=== PATIENT | female | born 1990 | race Caucasian/White ===

== ENCOUNTER 2017-01-22 09:37 | Inpatient (IN) | payer MEDICAID ==
[~2017-01-22] VITALS: Ht 154.9 cm; Wt 45.9 kg
[~2017-01-22 09:37] MED LIST: BUPR1FIL5 PO; HYDR25CA PO; TRAZ100T15 PO
[2017-01-22] MEDS ORDERED: LORazepam 2 MG/ML, 1ML IVPush ONE (10:00)
[2017-01-22] MEDS ORDERED: SODIUM CHLORIDE 0.9% 1,000ML IVBOLUS ONE (10:00)
[2017-01-22] MEDS ORDERED: PROPOFOL 10 MG/ML, 20ML ONE (10:21)
[2017-01-22 10:25] LABS: HEMOGLOBIN 13.6 g/dL (11.7-16.4)
[2017-01-22 10:37] LABS: ASPARTATE AMINO TRANSFERASE 23 U/L (15-37); BLOOD UREA NITROGEN 8 mg/dL (7-18)
[2017-01-22] MEDS ORDERED: PIPERACILLIN/TAZO/PMX 3.375GM 50 ML IV ONE (11:00)
[2017-01-22] MEDS ORDERED: VANCOMYCIN PER PHARMACY MC PRN ×2 (11:00→12:30)
[2017-01-22] MEDS ORDERED: LORazepam 2 MG/ML, 1ML ONE (11:24)
[2017-01-22] MEDS ORDERED: HYDROmorphone 1 MG/ML, 1ML ONE ×2 (11:24→13:17)
[2017-01-22] MEDS: HYDROmorphone 1 MG/ML, 1ML IVPush PRN ×2 (11:28→13:18)
[2017-01-22] MEDS ORDERED: VANCOMYCIN 700 MG in SODIUM CHLORIDE 0.9% 100 ML IV ONE (11:30)
[2017-01-22] MEDS ORDERED: PHARMACOKINETIC CONSULTATION MC ONE ×2 (11:30→14:00)
[2017-01-22] MEDS ORDERED: PIPERACILLIN/TAZO/PMX 3.375GM 50 ML ONE (12:05)
[2017-01-22] MEDS ORDERED: ONDANSETRON 2MG/ML, 2ML IVP PRN (12:30)
[2017-01-22] MEDS ORDERED: HYDROcodone/APAP 5/325 TABLET PO PRN ×2 (12:30→19:30)
[2017-01-22 13:33] VITALS: BP 134/77
[2017-01-22 13:49] LABS: DAU SCREEN DISCLAIMER
[2017-01-22] MEDS ORDERED: PHARMACOKINETIC MONITORING MC PRN (14:00)
[2017-01-22] MEDS: ENOXAPARIN 40 MG/0.4 ML SQ SCH (14:21)
[2017-01-22] MEDS: MORPHINE SULFATE 4 MG/ML, 1ML IVPush PRN ×3 (14:41→22:12)
[2017-01-22] MEDS ORDERED: POTASSIUM CHLORIDE 20 MEQ TAB.ER.PRT PO ONE (15:30)
[2017-01-22] MEDS: VANCOMYCIN 700 MG in SODIUM CHLORIDE 0.9% 100 ML IV SCH (15:51)
[2017-01-22] MEDS: SODIUM CHLORIDE 0.9% 1,000 ML IV SCH ×2 (16:01→23:08)
[2017-01-22] MEDS ORDERED: BACITRACIN OINT 500U/GM, 15 GM ONE (18:27)
[2017-01-22] MEDS: D5%-0.45% NACL 1,000 ML IV SCH (19:09)
[2017-01-22] MEDS ORDERED: OXYcodone/APAP 5/325MG TABLET PO PRN (19:30)
[2017-01-22] MEDS ORDERED: morphine SULFATE 10 MG/ML, 1ML IV PRN ×2 (19:30→20:30)
[2017-01-22] MEDS ORDERED: PROMETHAZINE 25 MG/ML, 1ML IM PRN (19:30)
[2017-01-22] MEDS ORDERED: MIDAZOLAM 1 MG/ML, 2ML ONE ×3 (19:43→20:21)
[2017-01-22] MEDS ORDERED: HYDROmorphone 2 MG/ML, 1ML ONE (19:57)
[2017-01-22] MEDS ORDERED: MIDAZOLAM 1 MG/ML, 2ML IVPush ONE (20:00)
[2017-01-22] MEDS ORDERED: OXYcodone 5 MG/5 ML ORAL.SOL UDC ONE (20:21)
[2017-01-22] MEDS ORDERED: FENTANYL PF 100 MCG/2ML ONE (20:21)
[2017-01-22] MEDS ORDERED: PROMETHAZINE 25 MG/ML, 1ML IV PRN (20:30)
[2017-01-22] MEDS ORDERED: hydrALAzine 20 MG/ML, 1ML IV PRN (20:30)
[2017-01-22] MEDS ORDERED: LABETALOL 5MG/ML, 20ML IV PRN (20:30)
[2017-01-22] MEDS ORDERED: MIDAZOLAM 1 MG/ML, 2ML IV PRN (20:30)
[2017-01-22] MEDS ORDERED: OXYcodone 5 MG/5 ML ORAL.SOL UDC PO PRN (20:30)
[2017-01-22] MEDS ORDERED: FENTANYL PF 100 MCG/2ML IV PRN (20:30)
[2017-01-22] MEDS: TRAZODONE 100MG TABLET PO SCH ×2 (21:00→22:59)
[2017-01-22] MEDS: CLINDAMYCIN PMX 900MG/50ML 50 ML IVPB SCH (22:12)
[2017-01-22 22:43] VITALS: BP 154/95
[2017-01-22] MEDS: METHADONE 10 MG TABLET PO SCH (22:59)
[2017-01-23 00:57] VITALS: BP 134/84
[2017-01-23 01:00] VITALS: BP 134/84
[2017-01-23] MEDS: LORazepam 2 MG/ML, 1ML IVPush PRN ×2 (02:30→18:12)
[2017-01-23] MEDS: VANCOMYCIN 700 MG in SODIUM CHLORIDE 0.9% 100 ML IV SCH ×2 (03:35→16:48)
[2017-01-23] MEDS: D5%-0.45% NACL 1,000 ML IV SCH ×2 (04:35→16:19)
[2017-01-23] MEDS: MORPHINE SULFATE 4 MG/ML, 1ML IVPush PRN ×4 (06:15→23:41)
[2017-01-23] MEDS: CLINDAMYCIN PMX 900MG/50ML 50 ML IVPB SCH ×3 (06:15→21:23)
[2017-01-23 06:36] LABS: BLOOD UREA NITROGEN 3 mg/dL (7-18)
[2017-01-23 06:57] LABS: DIFF TOTAL CELLS COUNTED 100 CELL DIFF; HEMOGLOBIN 12.4 g/dL (11.7-16.4)
[2017-01-23 06:59] LABS: VERIFY COUNTS? YES
[2017-01-23 08:12] VITALS: BP 118/67
[2017-01-23] MEDS: SENNA/DOCUSATE TABLET PO SCH (09:48)
[2017-01-23] MEDS: METHADONE 10 MG TABLET PO SCH ×2 (09:53→21:23)
[2017-01-23] MEDS ORDERED: POTASSIUM CHLORIDE 20 MEQ TAB.ER.PRT PO ONE (10:30)
[2017-01-23] MEDS ORDERED: SODIUM CHLORIDE 0.9% 1,000 ML IV SCH (11:00)
[2017-01-23] MEDS: ENOXAPARIN 40 MG/0.4 ML SQ SCH (12:30)
[2017-01-23] MEDS: SODIUM CHLORIDE 0.9% 1,000 ML IV SCH ×2 (13:28→21:23)
[2017-01-23 15:22] VITALS: BP 131/83
[2017-01-23 19:07] VITALS: BP 125/87
[2017-01-23] MEDS: TRAZODONE 100MG TABLET PO SCH (21:00)
[2017-01-24] MEDS: LORazepam 2 MG/ML, 1ML IVPush PRN ×2 (00:29→11:44)
[2017-01-24] MEDS: D5%-0.45% NACL 1,000 ML IV SCH ×3 (01:04→19:50)
[2017-01-24] MEDS: VANCOMYCIN 700 MG in SODIUM CHLORIDE 0.9% 100 ML IV SCH (03:05)
[2017-01-24 03:56] VITALS: BP 122/82
[2017-01-24] MEDS: CLINDAMYCIN PMX 900MG/50ML 50 ML IVPB SCH ×3 (05:22→22:12)
[2017-01-24 05:23] LABS: HEMOGLOBIN 11.9 g/dL (11.7-16.4)
[2017-01-24] MEDS: SODIUM CHLORIDE 0.9% 1,000 ML IV SCH ×3 (05:25→22:13)
[2017-01-24 05:29] LABS: BLOOD UREA NITROGEN 5 mg/dL (7-18)
[2017-01-24 06:52] VITALS: BP 133/79
[2017-01-24] MEDS ORDERED: POTASSIUM CHLORIDE 20 MEQ TAB.ER.PRT PO ONE (07:00)
[2017-01-24] MEDS: MORPHINE SULFATE 4 MG/ML, 1ML IVPush PRN ×3 (10:21→20:52)
[2017-01-24] MEDS: METHADONE 10 MG TABLET PO SCH ×2 (11:44→20:52)
[2017-01-24] MEDS: SENNA/DOCUSATE TABLET PO SCH (12:55)
[2017-01-24] MEDS: ENOXAPARIN 40 MG/0.4 ML SQ SCH (12:56)
[2017-01-24] MEDS ORDERED: DIPHTHERIA-TETANUS ADULT 0.5ML IM-VACC ONE (13:30)
[2017-01-24 14:06] VITALS: BP 110/72
[2017-01-24 15:17] LABS: HIV 1&2 ANTIBODY SCREEN Nonreactive (Nonreactive); HIV-1 p24 ANTIGEN Nonreactive (Nonreactive)
[2017-01-24] MEDS ORDERED: GADOBUTROL 7.5 MMOL/7.5 ML PFS ONE (16:16)
[2017-01-24 19:10] VITALS: BP 138/84
[2017-01-24] MEDS: TRAZODONE 100MG TABLET PO SCH (21:00)
[2017-01-25 00:44] VITALS: BP 130/83
[2017-01-25 05:08] LABS: BLOOD UREA NITROGEN 3 mg/dL (7-18)
[2017-01-25] MEDS: CLINDAMYCIN PMX 900MG/50ML 50 ML IVPB SCH ×3 (05:08→22:00)
[2017-01-25] MEDS: SODIUM CHLORIDE 0.9% 1,000 ML IV SCH ×2 (05:08→13:25)
[2017-01-25] MEDS: MORPHINE SULFATE 4 MG/ML, 1ML IVPush PRN ×3 (05:09→20:17)
[2017-01-25] MEDS: D5%-0.45% NACL 1,000 ML IV SCH ×2 (07:09→17:25)
[2017-01-25 08:16] VITALS: BP 116/75
[2017-01-25] MEDS: METHADONE 10 MG TABLET PO SCH ×2 (08:21→20:16)
[2017-01-25] MEDS: SENNA/DOCUSATE TABLET PO SCH (08:21)
[2017-01-25 09:06] LABS: HEPATITIS B SURFACE AG SCREEN Negative (Negative)
[2017-01-25] MEDS ORDERED: PROPOFOL 10 MG/ML, 20ML ONE (10:12)
[2017-01-25] MEDS: ENOXAPARIN 40 MG/0.4 ML SQ SCH (13:43)
[2017-01-25 15:33] VITALS: BP 108/69
[2017-01-25 19:17] VITALS: BP 110/56
[2017-01-25] MEDS: TRAZODONE 100MG TABLET PO SCH (20:16)
[2017-01-25] MEDS: LORazepam 2 MG/ML, 1ML IVPush PRN (20:17)
[2017-01-26] MEDS: SODIUM CHLORIDE 0.9% 1,000 ML IV SCH ×2 (00:50→09:29)
[2017-01-26 01:04] VITALS: BP 117/63
[2017-01-26] MEDS: MORPHINE SULFATE 4 MG/ML, 1ML IVPush PRN ×4 (01:13→22:33)
[2017-01-26] MEDS: LORazepam 2 MG/ML, 1ML IVPush PRN ×3 (01:13→22:33)
[2017-01-26] MEDS: D5%-0.45% NACL 1,000 ML IV SCH (03:09)
[2017-01-26 05:21] LABS: BLOOD UREA NITROGEN 5 mg/dL (7-18)
[2017-01-26] MEDS: CLINDAMYCIN PMX 900MG/50ML 50 ML IVPB SCH ×3 (06:12→22:33)
[2017-01-26 08:16] VITALS: BP 98/51
[2017-01-26] MEDS: SENNA/DOCUSATE TABLET PO SCH (09:00)
[2017-01-26] MEDS: METHADONE 10 MG TABLET PO SCH ×2 (09:29→22:33)
[2017-01-26] MEDS: ENOXAPARIN 40 MG/0.4 ML SQ SCH (12:59)
[2017-01-26 16:40] VITALS: BP 113/76
[2017-01-26 20:00] VITALS: BP 123/77
[2017-01-26] MEDS: TRAZODONE 100MG TABLET PO SCH (22:32)
[2017-01-27 02:00] VITALS: BP 102/54
[2017-01-27 05:19] LABS: HEMOGLOBIN 11.8 g/dL (11.7-16.4)
[2017-01-27 05:29] LABS: BLOOD UREA NITROGEN 8 mg/dL (7-18)
[2017-01-27] MEDS: CLINDAMYCIN PMX 900MG/50ML 50 ML IVPB SCH ×3 (06:26→21:51)
[2017-01-27 07:16] VITALS: BP 97/59
[2017-01-27] MEDS: METHADONE 10 MG TABLET PO SCH ×2 (08:50→21:50)
[2017-01-27] MEDS: SENNA/DOCUSATE TABLET PO SCH (08:50)
[2017-01-27] MEDS: MORPHINE SULFATE 4 MG/ML, 1ML IVPush PRN (09:04)
[2017-01-27] MEDS: ENOXAPARIN 40 MG/0.4 ML SQ SCH (12:12)
[2017-01-27] MEDS: LORazepam 2 MG/ML, 1ML IVPush PRN ×2 (12:12→21:52)
[2017-01-27 14:35] VITALS: BP 106/58
[2017-01-27] MEDS: OXYcodone/APAP 7.5/325MG TABLET PO PRN (19:14)
[2017-01-27 20:00] VITALS: BP 90/63
[2017-01-27] MEDS: TRAZODONE 100MG TABLET PO SCH (21:50)
[2017-01-28 02:00] VITALS: BP 92/54
[2017-01-28] MEDS: CLINDAMYCIN PMX 900MG/50ML 50 ML IVPB SCH ×3 (05:50→22:54)
[2017-01-28 08:10] VITALS: BP 89/47
[2017-01-28] MEDS ORDERED: MORPHINE MC SCH (10:00)
[2017-01-28] MEDS: SENNA/DOCUSATE TABLET PO SCH (10:11)
[2017-01-28] MEDS: MORPHINE SULFATE 4 MG/ML, 1ML IVPush PRN (10:11)
[2017-01-28] MEDS: METHADONE 10 MG TABLET PO SCH ×2 (10:11→21:00)
[2017-01-28] MEDS: ENOXAPARIN 40 MG/0.4 ML SQ SCH (12:30)
[2017-01-28] MEDS: OXYcodone/APAP 7.5/325MG TABLET PO PRN (14:43)
[2017-01-28] MEDS: LORazepam 1MG TABLET PO PRN (14:43)
[2017-01-28 14:51] VITALS: BP 91/47
[2017-01-28 20:18] VITALS: BP 99/50
[2017-01-28] MEDS: TRAZODONE 100MG TABLET PO SCH (21:00)
[2017-01-29 02:59] VITALS: BP 100/55
[2017-01-29] MEDS: CLINDAMYCIN PMX 900MG/50ML 50 ML IVPB SCH ×3 (05:55→22:28)
[2017-01-29 06:31] VITALS: BP 95/44
[2017-01-29] MEDS: METHADONE 10 MG TABLET PO SCH ×3 (09:00→21:00)
[2017-01-29] MEDS: SENNA/DOCUSATE TABLET PO SCH (09:45)
[2017-01-29] MEDS: MORPHINE SULFATE 4 MG/ML, 1ML IVPush PRN (11:40)
[2017-01-29] MEDS: ENOXAPARIN 40 MG/0.4 ML SQ SCH (12:30)
[2017-01-29] MEDS: OXYcodone/APAP 7.5/325MG TABLET PO PRN ×3 (13:27→22:28)
[2017-01-29] MEDS: LORazepam 1MG TABLET PO PRN ×2 (13:41→22:28)
[2017-01-29 15:06] VITALS: BP 95/48
[2017-01-29 20:39] VITALS: BP 93/49
[2017-01-29] MEDS: TRAZODONE 100MG TABLET PO SCH (22:27)
[2017-01-30 01:54] VITALS: BP 89/44
[2017-01-30 02:06] VITALS: BP 99/55
[2017-01-30] MEDS ORDERED: PNEUMOCOCCAL 23 VACCINE IM-VACC ONE (03:00)
[2017-01-30] MEDS ORDERED: FLU VACC QS2016-17 (36MOS+)UP/PF 0.5 ML IM-VACC ONE (03:00)
[2017-01-30] MEDS: CLINDAMYCIN PMX 900MG/50ML 50 ML IVPB SCH ×3 (06:12→22:01)
[2017-01-30 07:53] VITALS: BP 99/55
[2017-01-30] MEDS: METHADONE 10 MG TABLET PO SCH ×2 (09:38→22:01)
[2017-01-30] MEDS: SENNA/DOCUSATE TABLET PO SCH (09:38)
[2017-01-30] MEDS: OXYcodone/APAP 7.5/325MG TABLET PO PRN ×2 (11:59→18:38)
[2017-01-30] MEDS: ENOXAPARIN 40 MG/0.4 ML SQ SCH (13:39)
[2017-01-30] MEDS: MORPHINE SULFATE 4 MG/ML, 1ML IVPush PRN (13:39)
[2017-01-30] MEDS: LORazepam 1MG TABLET PO PRN ×2 (14:43→22:27)
[2017-01-30 15:13] VITALS: BP 100/55
[2017-01-30 18:28] VITALS: BP 107/62
[2017-01-30] MEDS: TRAZODONE 100MG TABLET PO SCH (22:01)
[2017-01-31] MEDS: OXYcodone/APAP 7.5/325MG TABLET PO PRN ×2 (05:19→17:22)
[2017-01-31] MEDS: LORazepam 1MG TABLET PO PRN ×4 (05:19→22:17)
[2017-01-31] MEDS: CLINDAMYCIN PMX 900MG/50ML 50 ML IVPB SCH ×3 (05:19→21:42)
[2017-01-31 05:46] LABS: HEMOGLOBIN 11.2 g/dL (11.7-16.4)
[2017-01-31 05:49] VITALS: BP 85/42
[2017-01-31 06:10] LABS: ASPARTATE AMINO TRANSFERASE 19 U/L (15-37); BLOOD UREA NITROGEN 14 mg/dL (7-18); C-REACTIVE PROTEIN, QUANT 0.69 mg/dL (0.02-0.49)
[2017-01-31 07:38] VITALS: BP 104/56
[2017-01-31] MEDS: METHADONE 10 MG TABLET PO SCH ×2 (08:54→21:39)
[2017-01-31] MEDS: SENNA/DOCUSATE TABLET PO SCH (08:55)
[2017-01-31] MEDS ORDERED: DIPHENHYDRAMINE 25 MG CAPSULE ONE (09:59)
[2017-01-31] MEDS ORDERED: DIPHENHYDRAMINE 12.5MG/5ML, 10ML UDC PO PRN (10:00)
[2017-01-31] MEDS: MORPHINE SULFATE 4 MG/ML, 1ML IVPush PRN (10:13)
[2017-01-31] MEDS: ENOXAPARIN 40 MG/0.4 ML SQ SCH (12:30)
[2017-01-31 14:01] VITALS: BP 100/59
[2017-01-31 19:10] VITALS: BP 99/47
[2017-01-31] MEDS: TRAZODONE 100MG TABLET PO SCH (21:39)
[2017-02-01 02:55] VITALS: BP 100/55
[2017-02-01] MEDS: OXYcodone/APAP 7.5/325MG TABLET PO PRN ×3 (03:04→18:10)
[2017-02-01] MEDS: CLINDAMYCIN PMX 900MG/50ML 50 ML IVPB SCH ×3 (05:54→21:40)
[2017-02-01] MEDS: LORazepam 1MG TABLET PO PRN ×2 (05:54→19:55)
[2017-02-01] MEDS: SENNA/DOCUSATE TABLET PO SCH (09:01)
[2017-02-01 09:30] VITALS: BP 95/50
[2017-02-01] MEDS: METHADONE 10 MG TABLET PO SCH ×2 (10:01→20:42)
[2017-02-01] MEDS: ENOXAPARIN 40 MG/0.4 ML SQ SCH ×2 (12:30→16:43)
[2017-02-01 15:02] VITALS: BP 100/56
[2017-02-01] MEDS: MORPHINE SULFATE 4 MG/ML, 1ML IVPush PRN (16:42)
[2017-02-01 19:05] VITALS: BP 93/49
[2017-02-01] MEDS: TRAZODONE 100MG TABLET PO SCH (21:40)
[2017-02-02 01:13] VITALS: BP 89/58
[2017-02-02] MEDS: OXYcodone/APAP 7.5/325MG TABLET PO PRN ×2 (01:28→08:52)
[2017-02-02] MEDS: LORazepam 1MG TABLET PO PRN ×2 (01:28→06:01)
[2017-02-02 01:31] VITALS: BP 89/58
[2017-02-02] MEDS: CLINDAMYCIN PMX 900MG/50ML 50 ML IVPB SCH ×3 (05:57→22:48)
[2017-02-02 07:11] VITALS: BP 92/55
[2017-02-02] MEDS: SENNA/DOCUSATE TABLET PO SCH (08:36)
[2017-02-02] MEDS: METHADONE 10 MG TABLET PO SCH ×2 (08:36→21:26)
[2017-02-02] MEDS: MORPHINE SULFATE 4 MG/ML, 1ML IVPush PRN ×2 (08:52→22:14)
[2017-02-02] MEDS: ENOXAPARIN 40 MG/0.4 ML SQ SCH (12:24)
[2017-02-02 13:34] VITALS: BP 98/53
[2017-02-02] MEDS: HYDROcodone/APAP 5/325 TABLET PO PRN ×2 (15:58→19:58)
[2017-02-02 19:36] VITALS: BP 97/51
[2017-02-02] MEDS: TRAZODONE 100MG TABLET PO SCH (21:26)
[2017-02-03 03:33] VITALS: BP 91/47
[2017-02-03] MEDS: HYDROcodone/APAP 5/325 TABLET PO PRN ×2 (03:51→13:05)
[2017-02-03] MEDS: CLINDAMYCIN PMX 900MG/50ML 50 ML IVPB SCH ×3 (06:06→21:35)
[2017-02-03 06:51] VITALS: BP 88/46
[2017-02-03] MEDS: SENNA/DOCUSATE TABLET PO SCH (09:21)
[2017-02-03] MEDS: METHADONE 10 MG TABLET PO SCH ×2 (09:22→21:26)
[2017-02-03] MEDS: MORPHINE SULFATE 4 MG/ML, 1ML IVPush PRN (10:00)
[2017-02-03] MEDS ORDERED: CLINDAMYCIN PMX 900MG/50ML 50 ML IVPB SCH (11:30)
[2017-02-03] MEDS: ENOXAPARIN 40 MG/0.4 ML SQ SCH (13:05)
[2017-02-03 13:10] VITALS: BP 92/47
[2017-02-03 19:15] VITALS: BP 142/103
[2017-02-03] MEDS: TRAZODONE 100MG TABLET PO SCH (21:26)
[2017-02-04] MEDS: HYDROcodone/APAP 5/325 TABLET PO PRN ×2 (02:12→08:03)
[2017-02-04 02:14] VITALS: BP 128/75
[2017-02-04] MEDS ORDERED: CLINDAMYCIN 300 MG CAPSULE PO SCH (06:00)
[2017-02-04 07:57] VITALS: BP 139/86
[2017-02-04] MEDS: METHADONE 10 MG TABLET PO SCH ×2 (08:03→20:58)
[2017-02-04] MEDS: SENNA/DOCUSATE TABLET PO SCH (08:03)
[2017-02-04] MEDS: AMPICILLIN/SULBACTAM 3 GM in SODIUM CHLORIDE 0.9% 100 ML IV SCH ×2 (13:19→20:58)
[2017-02-04] MEDS: ENOXAPARIN 40 MG/0.4 ML SQ SCH (13:20)
[2017-02-04 14:16] VITALS: BP 137/92
[2017-02-04] MEDS ORDERED: DIAZEPAM 5 MG/ML, 2ML IV ONE (16:00)
[2017-02-04] MEDS: HYDROmorphone 2MG TABLET PO PRN ×2 (16:02→23:05)
[2017-02-04 20:00] VITALS: BP 101/40
[2017-02-04] MEDS: TRAZODONE 100MG TABLET PO SCH (20:58)
[2017-02-05 00:34] VITALS: BP 133/75
[2017-02-05] MEDS: HYDROmorphone 2MG TABLET PO PRN ×4 (05:34→22:53)
[2017-02-05] MEDS: AMPICILLIN/SULBACTAM 3 GM in SODIUM CHLORIDE 0.9% 100 ML IV SCH ×3 (05:35→19:41)
[2017-02-05 06:19] LABS: BLOOD UREA NITROGEN 17 mg/dL (7-18)
[2017-02-05 06:20] LABS: HEMOGLOBIN 11.5 g/dL (11.7-16.4)
[2017-02-05 06:27] LABS: ASPARTATE AMINO TRANSFERASE 31 U/L (15-37)
[2017-02-05 07:31] VITALS: BP 106/53
[2017-02-05] MEDS: METHADONE 10 MG TABLET PO SCH ×2 (08:45→21:11)
[2017-02-05] MEDS: SENNA/DOCUSATE TABLET PO SCH (08:45)
[2017-02-05] MEDS: ENOXAPARIN 40 MG/0.4 ML SQ SCH (11:47)
[2017-02-05 14:12] VITALS: BP 113/61
[2017-02-05 19:55] VITALS: BP 116/32
[2017-02-05] MEDS: TRAZODONE 100MG TABLET PO SCH (21:11)
[2017-02-06 01:45] VITALS: BP 106/41
[2017-02-06] MEDS: AMPICILLIN/SULBACTAM 3 GM in SODIUM CHLORIDE 0.9% 100 ML IV SCH ×3 (04:11→20:51)
[2017-02-06 07:27] VITALS: BP 81/45
[2017-02-06] MEDS: METHADONE 10 MG TABLET PO SCH (09:09)
[2017-02-06] MEDS: SENNA/DOCUSATE TABLET PO SCH (09:09)
[2017-02-06] MEDS: HYDROmorphone 2MG TABLET PO PRN ×2 (09:09→20:58)
[2017-02-06] MEDS: ENOXAPARIN 40 MG/0.4 ML SQ SCH (12:11)
[2017-02-06 12:27] LABS: ASPARTATE AMINO TRANSFERASE 25 U/L (15-37); BLOOD UREA NITROGEN 20 mg/dL (7-18)
[2017-02-06 13:28] VITALS: BP 92/48
[2017-02-06] MEDS: DIPHENHYDRAMINE 25 MG CAPSULE PO PRN ×2 (14:12→20:58)
[2017-02-06 19:49] VITALS: BP 91/48
[2017-02-06] MEDS: METHADONE 5 MG TABLET PO SCH (20:58)
[2017-02-06] MEDS: TRAZODONE 100MG TABLET PO SCH (20:58)
[2017-02-06 23:53] VITALS: BP 89/41
[2017-02-07] MEDS: HYDROmorphone 2MG TABLET PO PRN ×3 (01:00→17:54)
[2017-02-07 01:03] VITALS: BP 103/67
[2017-02-07] MEDS: AMPICILLIN/SULBACTAM 3 GM in SODIUM CHLORIDE 0.9% 100 ML IV SCH ×3 (04:20→21:07)
[2017-02-07 05:08] LABS: BLOOD UREA NITROGEN 20 mg/dL (7-18)
[2017-02-07 05:13] LABS: ASPARTATE AMINO TRANSFERASE 21 U/L (15-37); C-REACTIVE PROTEIN, QUANT 0.91 mg/dL (0.02-0.49)
[2017-02-07 07:42] VITALS: BP 76/42
[2017-02-07 09:50] VITALS: BP 92/48
[2017-02-07] MEDS: METHADONE 5 MG TABLET PO SCH ×2 (09:50→21:00)
[2017-02-07] MEDS: SENNA/DOCUSATE TABLET PO SCH (09:50)
[2017-02-07] MEDS: ENOXAPARIN 40 MG/0.4 ML SQ SCH (12:30)
[2017-02-07 12:54] VITALS: BP 82/52
[2017-02-07] MEDS ORDERED: GADOBUTROL 7.5 MMOL/7.5 ML PFS ONE (16:46)
[2017-02-07 20:08] VITALS: BP 83/46
[2017-02-07] MEDS: TRAZODONE 100MG TABLET PO SCH (21:00)
[2017-02-08] MEDS: HYDROmorphone 2MG TABLET PO PRN ×4 (00:35→23:40)
[2017-02-08] MEDS: METHADONE 5 MG TABLET PO SCH ×3 (00:38→21:37)
[2017-02-08] MEDS: AMPICILLIN/SULBACTAM 3 GM in SODIUM CHLORIDE 0.9% 100 ML IV SCH ×3 (04:05→20:12)
[2017-02-08 08:29] VITALS: BP 86/47
[2017-02-08] MEDS: SENNA/DOCUSATE TABLET PO SCH (09:00)
[2017-02-08] MEDS: ENOXAPARIN 40 MG/0.4 ML SQ SCH (12:30)
[2017-02-08] MEDS ORDERED: MIDAZOLAM 1 MG/ML, 2ML ONE ×3 (14:37→14:49)
[2017-02-08] MEDS ORDERED: BUPIVACAINE/PF 0.25% ONE (14:37)
[2017-02-08] MEDS ORDERED: FENTANYL PF 100 MCG/2ML ONE ×3 (14:49→14:50)
[2017-02-08] MEDS: D5%-0.45% NACL 1,000 ML IV SCH (15:00)
[2017-02-08] MEDS ORDERED: ALUMINUM/MAG/SIMETHICONE 30 ML UDC PO PRN (15:00)
[2017-02-08] MEDS ORDERED: EPHEDRINE 50 MG/ML, 1ML ONE (15:00)
[2017-02-08] MEDS ORDERED: MAGNESIUM HYDROXIDE 8%, 30ML UDC PO PRN (15:00)
[2017-02-08] MEDS ORDERED: PROPOFOL 10 MG/ML, 20ML ONE (15:00)
[2017-02-08] MEDS ORDERED: SENNA/DOCUSATE TABLET PO PRN (15:00)
[2017-02-08] MEDS ORDERED: BISACODYL 10 MG SUPP PR PRN (15:00)
[2017-02-08] MEDS ORDERED: FENTANYL PF 100 MCG/2ML IV PRN (15:30)
[2017-02-08] MEDS ORDERED: ACETAMINOPHEN 325 MG TABLET PO PRN (15:30)
[2017-02-08] MEDS ORDERED: HYDROmorphone 1 MG/ML, 1ML IV PRN (15:30)
[2017-02-08] MEDS ORDERED: MIDAZOLAM 1 MG/ML, 2ML IV PRN (15:30)
[2017-02-08] MEDS ORDERED: OXYcodone 5 MG/5 ML ORAL.SOL UDC PO PRN (15:30)
[2017-02-08] MEDS ORDERED: MEPERIDINE/PF 25MG/0.5ML IVPush PRN (15:30)
[2017-02-08] MEDS ORDERED: PROMETHAZINE 25 MG/ML, 1ML IV PRN (15:30)
[2017-02-08] MEDS ORDERED: BACITRACIN ZINC OINT 500U/GM, 0.9 GM ONE (15:59)
[2017-02-08 19:32] VITALS: BP 90/45
[2017-02-08] MEDS: DOCUSATE 100 MG CAPSULE PO SCH (21:36)
[2017-02-08] MEDS: TRAZODONE 100MG TABLET PO SCH (21:36)
[2017-02-08 23:37] VITALS: BP 106/46
[2017-02-09 01:58] VITALS: BP 120/68
[2017-02-09] MEDS: AMPICILLIN/SULBACTAM 3 GM in SODIUM CHLORIDE 0.9% 100 ML IV SCH ×3 (04:42→20:36)
[2017-02-09] MEDS: D5%-0.45% NACL 1,000 ML IV SCH (04:43)
[2017-02-09 08:23] VITALS: BP 102/54
[2017-02-09] MEDS: METHADONE 5 MG TABLET PO SCH ×2 (09:00→20:35)
[2017-02-09] MEDS: DOCUSATE 100 MG CAPSULE PO SCH ×2 (09:00→20:37)
[2017-02-09] MEDS: HYDROmorphone 2MG TABLET PO PRN ×2 (09:21→14:13)
[2017-02-09] MEDS: MULTIVITAMINS/MINERALS TABLET PO SCH (09:22)
[2017-02-09] MEDS: SENNA/DOCUSATE TABLET PO SCH (09:22)
[2017-02-09] MEDS: ENOXAPARIN 40 MG/0.4 ML SQ SCH (12:30)
[2017-02-09 15:00] VITALS: BP 99/54
[2017-02-09 19:58] VITALS: BP 94/50
[2017-02-09 20:00] VITALS: BP 94/50
[2017-02-09] MEDS: TRAZODONE 100MG TABLET PO SCH (20:35)
[2017-02-10] MEDS: HYDROmorphone 2MG TABLET PO PRN ×4 (00:07→17:37)
[2017-02-10] MEDS: DIPHENHYDRAMINE 25 MG CAPSULE PO PRN (00:12)
[2017-02-10 02:00] VITALS: BP 91/48
[2017-02-10] MEDS: AMPICILLIN/SULBACTAM 3 GM in SODIUM CHLORIDE 0.9% 100 ML IV SCH ×3 (04:02→19:54)
[2017-02-10 06:25] LABS: BLOOD UREA NITROGEN 15 mg/dL (7-18)
[2017-02-10 07:37] VITALS: BP 87/43
[2017-02-10] MEDS: MULTIVITAMINS/MINERALS TABLET PO SCH (08:56)
[2017-02-10] MEDS: DOCUSATE 100 MG CAPSULE PO SCH ×2 (08:56→20:41)
[2017-02-10] MEDS: METHADONE 5 MG TABLET PO SCH ×2 (08:57→20:41)
[2017-02-10] MEDS: SENNA/DOCUSATE TABLET PO SCH (08:57)
[2017-02-10] MEDS: ENOXAPARIN 40 MG/0.4 ML SQ SCH (12:30)
[2017-02-10 15:26] VITALS: BP 144/76
[2017-02-10 15:29] VITALS: BP 122/71
[2017-02-10 20:35] VITALS: BP 90/44
[2017-02-10] MEDS: TRAZODONE 100MG TABLET PO SCH (20:41)
[2017-02-11 02:00] VITALS: BP 91/44
[2017-02-11] MEDS: HYDROmorphone 2MG TABLET PO PRN ×4 (03:25→22:00)
[2017-02-11] MEDS: AMPICILLIN/SULBACTAM 3 GM in SODIUM CHLORIDE 0.9% 100 ML IV SCH ×3 (03:25→21:03)
[2017-02-11 08:20] VITALS: BP 86/47
[2017-02-11] MEDS: SENNA/DOCUSATE TABLET PO SCH (09:00)
[2017-02-11] MEDS: DOCUSATE 100 MG CAPSULE PO SCH ×2 (09:00→22:00)
[2017-02-11] MEDS: METHADONE 5 MG TABLET PO SCH ×2 (09:00→14:28)
[2017-02-11] MEDS: MULTIVITAMINS/MINERALS TABLET PO SCH (09:37)
[2017-02-11] MEDS: ENOXAPARIN 40 MG/0.4 ML SQ SCH (12:30)
[2017-02-11 14:52] VITALS: BP 93/43
[2017-02-11 20:13] VITALS: BP 96/55
[2017-02-11] MEDS: TRAZODONE 100MG TABLET PO SCH (22:00)
[2017-02-12] MEDS: METHADONE 5 MG TABLET PO SCH ×4 (00:30→21:17)
[2017-02-12 03:37] VITALS: BP 88/44
[2017-02-12] MEDS: AMPICILLIN/SULBACTAM 3 GM in SODIUM CHLORIDE 0.9% 100 ML IV SCH ×3 (04:27→21:17)
[2017-02-12 04:54] LABS: HEMOGLOBIN 11.1 g/dL (11.7-16.4)
[2017-02-12 05:05] LABS: BLOOD UREA NITROGEN 17 mg/dL (7-18)
[2017-02-12 07:27] VITALS: BP 87/41
[2017-02-12] MEDS: MULTIVITAMINS/MINERALS TABLET PO SCH (08:07)
[2017-02-12] MEDS: SENNA/DOCUSATE TABLET PO SCH (08:07)
[2017-02-12] MEDS: DOCUSATE 100 MG CAPSULE PO SCH ×2 (08:08→21:00)
[2017-02-12] MEDS: HYDROmorphone 2MG TABLET PO PRN ×2 (09:57→16:09)
[2017-02-12] MEDS: ALPRazolam 1MG TABLET PO PRN ×2 (12:25→21:26)
[2017-02-12] MEDS: ENOXAPARIN 40 MG/0.4 ML SQ SCH (12:30)
[2017-02-12 13:22] VITALS: BP 96/53
[2017-02-12 19:06] VITALS: BP 101/66
[2017-02-12] MEDS: TRAZODONE 100MG TABLET PO SCH (21:17)
[2017-02-13 01:33] VITALS: BP 96/58
[2017-02-13] MEDS: AMPICILLIN/SULBACTAM 3 GM in SODIUM CHLORIDE 0.9% 100 ML IV SCH ×3 (03:48→21:09)
[2017-02-13] MEDS: DOCUSATE 100 MG CAPSULE PO SCH ×2 (09:00→21:00)
[2017-02-13] MEDS: SENNA/DOCUSATE TABLET PO SCH (09:00)
[2017-02-13 09:22] VITALS: BP 107/70
[2017-02-13] MEDS: MULTIVITAMINS/MINERALS TABLET PO SCH (09:30)
[2017-02-13] MEDS: METHADONE 5 MG TABLET PO SCH ×2 (09:32→21:09)
[2017-02-13] MEDS: ENOXAPARIN 40 MG/0.4 ML SQ SCH (13:44)
[2017-02-13 13:58] VITALS: BP 105/70
[2017-02-13] MEDS ORDERED: OXYcodone IR 5MG TABLET PO PRN (14:00)
[2017-02-13] MEDS: OXYcodone IR 5MG TABLET PO PRN (18:29)
[2017-02-13 18:30] VITALS: BP 105/65
[2017-02-13] MEDS: TRAZODONE 100MG TABLET PO SCH (21:09)
[2017-02-14 04:54] VITALS: BP 92/48
[2017-02-14] MEDS: AMPICILLIN/SULBACTAM 3 GM in SODIUM CHLORIDE 0.9% 100 ML IV SCH ×2 (05:05→12:07)
[2017-02-14] MEDS: OXYcodone IR 5MG TABLET PO PRN ×3 (05:06→17:58)
[2017-02-14 05:52] LABS: HEMOGLOBIN 11.6 g/dL (11.7-16.4)
[2017-02-14 06:07] LABS: BLOOD UREA NITROGEN 17 mg/dL (7-18)
[2017-02-14 06:11] LABS: ASPARTATE AMINO TRANSFERASE 17 U/L (15-37); C-REACTIVE PROTEIN, QUANT 0.22 mg/dL (0.02-0.49)
[2017-02-14 08:58] VITALS: BP 90/42
[2017-02-14] MEDS: DOCUSATE 100 MG CAPSULE PO SCH (09:00)
[2017-02-14] MEDS: MULTIVITAMINS/MINERALS TABLET PO SCH (09:14)
[2017-02-14] MEDS: SENNA/DOCUSATE TABLET PO SCH (09:15)
[2017-02-14] MEDS: METHADONE 5 MG TABLET PO SCH (09:16)
[2017-02-14] MEDS ORDERED: SODIUM CHLORIDE FLUSH 10ML SYR IVF SCH (09:30)
[2017-02-14] MEDS: ALPRazolam 1MG TABLET PO PRN ×2 (09:46→17:58)
[2017-02-14 10:45] VITALS: BP 126/83
[2017-02-14] MEDS: ENOXAPARIN 40 MG/0.4 ML SQ SCH ×2 (12:07→12:09)
[2017-02-14] MEDS ORDERED: AMOX1TAB61 PO (13:29)
[2017-02-14] MEDS ORDERED: METH-356 PO (13:29)
[2017-02-14] MEDS ORDERED: ALPR1TAB6 PO (13:29)
[2017-02-14 18:09] VITALS: BP 111/68
== END 2017-02-14 18:32 | disposition home or self-care (01) | DRG 853 ==
LOC: ED 11:16 → EDIP 11:17 → ED 11:39 → 4EST 13:28 → 4WST 22:37 → 4NOR 01-28 16:17
PROVIDERS: ADMIT Internal Medicine
PROC: 0JDK0ZZ Extraction of Left Hand Subcutaneous Tissue and Fascia, Open Approach (ICD-10-PCS; principal; 2017-01-22 07:00)
PROC: B548ZZA Ultrasonography of Superior Vena Cava, Guidance (ICD-10-PCS; 2017-01-28)
PROC: 02HV33Z Insertion of Infusion Device into Superior Vena Cava, Percutaneous Approach (ICD-10-PCS; 2017-01-28)
PROC: B5181ZA Fluoroscopy of Superior Vena Cava using Low Osmolar Contrast, Guidance (ICD-10-PCS; 2017-01-28)
PROC: 0X6P0Z2 Detachment at Left Index Finger, Mid, Open Approach (ICD-10-PCS; 2017-02-08)
DX: A41.9 Sepsis, unspecified organism (principal); E43 Unspecified severe protein-calorie malnutrition; L02.512 Cutaneous abscess of left hand; F19.20 Other psychoactive substance dependence, uncomplicated; Z68.1 Body mass index [BMI] 19.9 or less, adult; F11.20 Opioid dependence, uncomplicated; M86.8X4 Other osteomyelitis, hand; L03.012 Cellulitis of left finger; M65.142 Other infective (teno)synovitis, left hand; K21.9 Gastro-esophageal reflux disease without esophagitis; F15.10 Other stimulant abuse, uncomplicated; F41.9 Anxiety disorder, unspecified; F17.210 Nicotine dependence, cigarettes, uncomplicated; E87.6 Hypokalemia; D64.9 Anemia, unspecified; L98.499 Non-pressure chronic ulcer of skin of other sites with unspecified severity; Z86.14 Personal history of Methicillin resistant Staphylococcus aureus infection; Z87.11 Personal history of peptic ulcer disease; Z23 Encounter for immunization; Z88.8 Allergy status to other drugs, medicaments and biological substances
CPT/HCPCS: 36415; 36569; 71020; 76937; 77001; 80048; 80053; 80307; 83605; 84703; 85025; 85651; 86140; 86141; 86480; 86703; 86704; 86706; 86803; 87040; 87070; 87075; 87205; 87340; 87899; 88305; 88311; 90686; 90714; 90732; 93005; 93306; 93312; 93325; 96361; 96365; 96375; A9585; J0295; J1170; J1650; J2250; J2405; J2543; J2704; J3010; J3360; J3370; J3490; C1751; G0435; J2060; J2270; J7030; Q0163; Q0177

== ENCOUNTER 2017-02-19 13:25 | Emergency (ER) | payer MEDICAID ==
[~2017-02-19] VITALS: Ht 154.9 cm; Wt 80.8 kg
[~2017-02-19 13:25] MED LIST changes: +ALPR1TAB6 PO; +AMOX1TAB61 PO; +METH-356 PO
[2017-02-19 13:41] VITALS: BP 112/71
[2017-02-19] MEDS ORDERED: IBUPROFEN 200 MG TABLET PO ONE (14:30)
[2017-02-19] MEDS ORDERED: IBUPROFEN 200 MG TABLET ONE (14:53)
[2017-02-19 15:00] LABS: HEMOGLOBIN 11.8 g/dL (11.7-16.4)
[2017-02-19 15:10] LABS: ASPARTATE AMINO TRANSFERASE 18 U/L (15-37); BLOOD UREA NITROGEN 18 mg/dL (7-18)
== END 2017-02-19 16:42 | disposition home or self-care (01) ==
LOC: ED 16:36
DX: M79.641 Pain in right hand (principal); K21.9 Gastro-esophageal reflux disease without esophagitis; Z88.6 Allergy status to analgesic agent; Z88.8 Allergy status to other drugs, medicaments and biological substances; F11.10 Opioid abuse, uncomplicated
CPT/HCPCS: 36415; 80053; 83605; 85025; 85651; 86141; 87040

== ENCOUNTER 2017-03-10 15:48 | Emergency (ER) | payer MEDICAID ==
[~2017-03-10] VITALS: Ht 152.4 cm; Wt 46.0 kg
[2017-03-10] MEDS ORDERED: QUET100T4 PO (16:05)
[2017-03-10] MEDS ORDERED: OXYC1TAB7 PO (16:05)
[2017-03-10] MEDS ORDERED: CEPH-376 PO (16:05)
[2017-03-10] MEDS ORDERED: PROP10TA PO (16:06)
[2017-03-10] MEDS ORDERED: DIPHENHYDRAMINE 50 MG/ML, 1ML ONE (16:24)
[2017-03-10] MEDS ORDERED: METOCLOPRAMIDE 5 MG/ML, 2ML ONE (16:24)
[2017-03-10] MEDS ORDERED: SODIUM CHLORIDE FLUSH 10ML SYR IVF ONE (16:30)
[2017-03-10] MEDS ORDERED: DIPHENHYDRAMINE 50 MG/ML, 1ML IVPush ONE (16:30)
[2017-03-10] MEDS ORDERED: METOCLOPRAMIDE 5 MG/ML, 2ML IVPush ONE (16:30)
[2017-03-10] MEDS ORDERED: SODIUM CHLORIDE 0.9% 1,000ML IVBOLUS ONE (16:30)
[2017-03-10 16:56] LABS: HEMOGLOBIN 12.8 g/dL (11.7-16.4)
[2017-03-10] MEDS ORDERED: cloniDINE 0.1MG PATCH TD ONE (17:00)
[2017-03-10 17:09] LABS: BLOOD UREA NITROGEN 12 mg/dL (7-18)
[2017-03-10 18:43] VITALS: BP 120/75
== END 2017-03-10 18:45 | disposition home or self-care (01) ==
LOC: ED 18:18
DX: M96.89 Other intraoperative and postprocedural complications and disorders of the musculoskeletal system (principal); M79.642 Pain in left hand; F41.1 Generalized anxiety disorder; F11.23 Opioid dependence with withdrawal; F11.20 Opioid dependence, uncomplicated
CPT/HCPCS: 36415; 73140; 80048; 82040; 85025; 85651; 86141; 96361; 96374; 96375; 99285; J1200; J2765; J7030

== ENCOUNTER 2021-04-24 21:08 | Emergency (ER) | payer MEDICAID ==
[~2021-04-24] VITALS: Ht 152.4 cm; Wt 43.6 kg
[~2021-04-24 21:08] MED LIST changes: +ALPR-585 PO; -ALPR1TAB6 PO; +CEPH-376 PO; -METH-356 PO; +METH10TA2 PO; +OXYC1TAB7 PO; +PROP10TA16 PO; +QUET100T4 PO; +TRAZ-175 PO; -TRAZ100T15 PO
[2021-04-24 21:13] VITALS: BP 112/76
--- NOTE | 2021-04-24 22:41 | NUR ---
NILX 2 [id number] BY PA AND [id number] THIS RN
--- NOTE | 2021-04-24 22:47 | NUR ---
NIL X 3 REGISTRATION WITNESS PT LEAVING
== END 2021-04-24 22:49 | disposition left against medical advice (07) ==
LOC: ED 21:30
DX: M79.602 Pain in left arm (principal); Z53.21 Procedure and treatment not carried out due to patient leaving prior to being seen by health care provider

== ENCOUNTER 2021-04-25 00:57 | Inpatient (IN) | payer MEDICAID ==
[~2021-04-25] VITALS: Ht 152.4 cm; Wt 49.6 kg
[2021-04-25] MEDS ORDERED: SODIUM CHLORIDE 0.9% 1,000ML IVBOLUS ONE (02:00)
[2021-04-25] MEDS ORDERED: VANCOMYCIN PER PHARMACY MC ONE (02:00)
[2021-04-25] MEDS ORDERED: PIPERACILLIN/TAZO 3.375 GM in DEXTROSE 5% 50 ML IVPB ONE (02:00)
[2021-04-25] MEDS ORDERED: VANCOMYCIN 1,000 MG in SODIUM CHLORIDE 0.9% 100 ML IV ONE (02:30)
[2021-04-25] MEDS ORDERED: VANCOMYCIN 1,000 MG in SODIUM CHLORIDE 0.9% 250 ML IV ONE (02:30)
[2021-04-25 03:13] LABS: BASOPHILS % (AUTO) 1 % (0-1); EOSINOPHILS % (AUTO) 1 % (1-7); LYMPHOCYTES % (AUTO) 14 % (22-44); MEAN CORPUSCULAR HEMOGLOBIN 26.8 pg (27.0-34.8); MEAN CORPUSCULAR HGB CONC 33.4 g/dL (32.4-35.8); MONOCYTES % (AUTO) 6 % (2-9); NEUTROPHILS % (AUTO) 78 % (42-75); PLATELET COUNT 270 x10^3/uL (130-400); RED CELL DISTRIBUTION WIDTH 13.5 % (9.6-15.2)
[2021-04-25 03:14] LABS: MD NO
[2021-04-25 03:21] LABS: ALANINE AMINOTRANSFERASE 20 U/L (12-78); ALBUMIN 2.2 g/dL (3.4-5.0); ANION GAP 7 mmol/L (5-15); CALCIUM 8.2 mg/dL (8.5-10.1); CHLORIDE 108 mmol/L (98-107)
[2021-04-25 03:25] LABS: ALKALINE PHOSPHATASE 90 U/L (45-117); BILIRUBIN,TOTAL 0.2 mg/dL (0.2-1.0); TOTAL PROTEIN 7.2 g/dL (6.4-8.2)
[2021-04-25] MEDS ORDERED: LORazepam 1MG TABLET PO ONE (03:30)
[2021-04-25] MEDS ORDERED: LORazepam 1MG TABLET ONE (03:33)
--- NOTE | 2021-04-25 03:45 | NUR ---
Multiple attempts made to establish an IV with no success. Patient anxious and requesting a break. Patient to be medicated per mar.
[2021-04-25] MEDS ORDERED: MORPHINE SULFATE 4 MG/ML, 1ML IVPush PRN (04:30)
[2021-04-25] MEDS ORDERED: SODIUM CHLORIDE 0.9% 1,000 ML IV ONE (04:30)
[2021-04-25] MEDS ORDERED: BISACODYL 10 MG SUPP PR PRN (05:00)
[2021-04-25] MEDS ORDERED: POLYETHYLENE GLYCOL 17 GM PACKET PO PRN (05:00)
[2021-04-25] MEDS ORDERED: DOCUSATE 100 MG CAPSULE PO PRN (05:00)
[2021-04-25] MEDS ORDERED: HYDROmorphone 1 MG/ML, 1ML INJ IV PRN ×2 (05:00→08:30)
[2021-04-25] MEDS ORDERED: hydrALAzine 20 MG/ML, 1ML IVPush PRN (05:00)
[2021-04-25] MEDS ORDERED: VANCOMYCIN PER PHARMACY MC PRN (05:00)
[2021-04-25] MEDS ORDERED: ONDANSETRON 2MG/ML, 2ML IVPush PRN ×2 (05:00→08:30)
--- NOTE | 2021-04-25 05:15 | NUR ---
Report given to Ciro JACKSON Rm [id number].
--- NOTE | 2021-04-25 05:46 | NUR ---
REPORT GIVEN TO BOY JACKSON IN SURGERY STATES WILL BE UP TO FLOOR AT 0630
--- NOTE | 2021-04-25 06:06 | NUR ---
PT RECIEVED 2ND CULTURE ZOSYN STARTED.
--- NOTE | 2021-04-25 06:10 | NUR ---
LISA IS WITH PATIENT.
--- NOTE | 2021-04-25 06:17 | NUR ---
VANCOMYCIN SENT WITH PT TO FLOOR TO BE STARTED AFTER ZOSYN INFUSION.
[2021-04-25 06:27] VITALS: BP 101/69
[2021-04-25] MEDS ORDERED: PHARMACOKINETIC MONITORING MC PRN (06:30)
[2021-04-25] MEDS ORDERED: MIDAZOLAM 1 MG/ML, 2ML ONE (07:26)
[2021-04-25] MEDS ORDERED: FENTANYL PF 250 MCG/5ML ONE (07:26)
[2021-04-25] MEDS ORDERED: PROPOFOL 10 MG/ML, 20ML ONE (07:28)
[2021-04-25] MEDS ORDERED: CEFAZOLIN 1,000 MG ONE (07:28)
[2021-04-25] MEDS ORDERED: SUCCINYLCHOLINE 20 MG/ML, 10ML ONE (07:28)
[2021-04-25] MEDS ORDERED: ONDANSETRON 2MG/ML, 2ML ONE (07:28)
[2021-04-25] MEDS ORDERED: AMPICILLIN/SULBACTAM 3 GM in SODIUM CHLORIDE 0.9% 100 ML IV SCH (08:00)
[2021-04-25] MEDS ORDERED: FENTANYL PF 100 MCG/2ML ONE (08:16)
[2021-04-25] MEDS ORDERED: OXYcodone 5 MG/5 ML ORAL.SOL UDC PO PRN (08:30)
[2021-04-25] MEDS ORDERED: METOCLOPRAMIDE 5 MG/ML, 2ML IV PRN (08:30)
[2021-04-25] MEDS ORDERED: FENTANYL PF 100 MCG/2ML IV PRN (08:30)
[2021-04-25] MEDS ORDERED: hydrALAzine 20 MG/ML, 1ML IV PRN (08:30)
[2021-04-25] MEDS ORDERED: KETOROLAC 30 MG/1 ML IV PRN (08:30)
[2021-04-25] MEDS ORDERED: PROMETHAZINE 25 MG/ML, 1ML IV PRN (08:30)
[2021-04-25] MEDS ORDERED: LABETALOL 5MG/ML, 20ML IV PRN (08:30)
[2021-04-25] MEDS ORDERED: MEPERIDINE/PF 25MG/0.5ML IVPush PRN (08:30)
[2021-04-25] MEDS ORDERED: ALBUTEROL SULFATE 2.5 MG/3 ML NPPB PRN (08:30)
[2021-04-25] MEDS ORDERED: DIAZEPAM 5 MG/ML, 2ML IV PRN ×2 (08:30)
[2021-04-25] MEDS ORDERED: OXYcodone 5 MG/5 ML ORAL.SOL UDC ONE (08:32)
[2021-04-25] MEDS: FAMOTIDINE 20 MG TABLET PO SCH ×2 (09:00→20:36)
[2021-04-25] MEDS: OXYcodone IR 5MG TABLET PO PRN ×2 (12:21→19:48)
[2021-04-25 12:38] VITALS: BP 109/74
[2021-04-25 16:19] VITALS: BP 125/80
[2021-04-25] MEDS: LORazepam 2 MG/ML, 1ML IVPush PRN ×2 (17:38→21:32)
[2021-04-25 18:47] LABS: HCT (SEDRATE) 30.8 % (34.6-47.8)
[2021-04-25] MEDS ORDERED: VANCOMYCIN 800 MG in SODIUM CHLORIDE 0.9% 100 ML IV SCH (19:00)
[2021-04-25] MEDS: DAPTOMYCIN 250 MG in SODIUM CHLORIDE 0.9% 100 ML IVPB SCH (19:34)
[2021-04-25] MEDS: ACETAMINOPHEN 325 MG TABLET PO PRN (19:47)
[2021-04-25 20:22] VITALS: BP 105/71
[2021-04-26 00:14] VITALS: BP 96/65
[2021-04-26] MEDS: LORazepam 2 MG/ML, 1ML IVPush PRN ×4 (02:20→19:32)
[2021-04-26] MEDS: ACETAMINOPHEN 325 MG TABLET PO PRN (02:23)
[2021-04-26] MEDS: OXYcodone IR 5MG TABLET PO PRN ×4 (02:23→19:32)
[2021-04-26 04:30] VITALS: BP 110/71
[2021-04-26 05:49] LABS: BASOPHILS % (AUTO) 1 % (0-1); EOSINOPHILS % (AUTO) 2 % (1-7); LYMPHOCYTES % (AUTO) 22 % (22-44); MEAN CORPUSCULAR HEMOGLOBIN 27.2 pg (27.0-34.8); MEAN CORPUSCULAR HGB CONC 34.1 g/dL (32.4-35.8); MEAN PLATELET VOLUME 6.8 fL (7.4-10.4); MONOCYTES % (AUTO) 5 % (2-9); NEUTROPHILS % (AUTO) 69 % (42-75); PLATELET COUNT 248 x10^3/uL (130-400); RED CELL DISTRIBUTION WIDTH 13.7 % (9.6-15.2)
[2021-04-26 05:53] LABS: MD NO
[2021-04-26 05:55] LABS: ANION GAP 6 mmol/L (5-15); CALCIUM 7.8 mg/dL (8.5-10.1); CHLORIDE 108 mmol/L (98-107); CREATININE 0.39 mg/dL (0.55-1.02)
[2021-04-26 07:19] VITALS: BP 116/76
[2021-04-26] MEDS: FAMOTIDINE 20 MG TABLET PO SCH ×2 (08:40→21:17)
[2021-04-26] MEDS ORDERED: METHADONE 5 MG TABLET ONE (10:17)
[2021-04-26] MEDS: METHADONE 10 MG TABLET PO SCH ×2 (11:39→21:17)
[2021-04-26 13:30] VITALS: BP 106/72
[2021-04-26] MEDS: DAPTOMYCIN 250 MG in SODIUM CHLORIDE 0.9% 100 ML IVPB SCH (19:31)
[2021-04-26 21:13] VITALS: BP 107/68
[2021-04-27] MEDS: OXYcodone IR 5MG TABLET PO PRN ×3 (02:13→19:33)
[2021-04-27] MEDS: LORazepam 2 MG/ML, 1ML IVPush PRN ×2 (02:14→08:05)
[2021-04-27 02:20] VITALS: BP 118/83
[2021-04-27 07:35] VITALS: BP 105/70
[2021-04-27] MEDS: FAMOTIDINE 20 MG TABLET PO SCH ×2 (08:05→19:33)
[2021-04-27] MEDS: METHADONE 10 MG TABLET PO SCH ×2 (08:05→21:06)
[2021-04-27 09:11] LABS: BASOPHILS % (AUTO) 0 % (0-1); EOSINOPHILS % (AUTO) 3 % (1-7); LYMPHOCYTES % (AUTO) 33 % (22-44); MEAN CORPUSCULAR HEMOGLOBIN 27.1 pg (27.0-34.8); MEAN CORPUSCULAR HGB CONC 34.1 g/dL (32.4-35.8); MEAN PLATELET VOLUME 6.6 fL (7.4-10.4); MONOCYTES % (AUTO) 5 % (2-9); NEUTROPHILS % (AUTO) 59 % (42-75); PLATELET COUNT 263 x10^3/uL (130-400); RED CELL DISTRIBUTION WIDTH 13.4 % (9.6-15.2)
[2021-04-27] MEDS ORDERED: HYDROmorphone 1 MG/ML, 1ML INJ ONE (09:25)
[2021-04-27] MEDS: HYDROmorphone 1 MG/ML, 1ML INJ IV PRN (09:28)
[2021-04-27 09:29] LABS: ALBUMIN 1.9 g/dL (3.4-5.0); CALCIUM 8.4 mg/dL (8.5-10.1)
[2021-04-27 09:33] LABS: ALANINE AMINOTRANSFERASE 14 U/L (12-78); ALKALINE PHOSPHATASE 72 U/L (45-117); BILIRUBIN,TOTAL 0.1 mg/dL (0.2-1.0); CREATINE KINASE, TOTAL 53 U/L (26-192); CREATININE 0.49 mg/dL (0.55-1.02); TOTAL PROTEIN 6.6 g/dL (6.4-8.2)
[2021-04-27 09:40] LABS: ANION GAP 3 mmol/L (5-15); CHLORIDE 106 mmol/L (98-107)
[2021-04-27 09:50] LABS: MD SCAN
[2021-04-27] MEDS ORDERED: LIDOCAINE 1%, 20ML INFIL ONE (10:00)
[2021-04-27] MEDS: POTASSIUM CHLORIDE 20 MEQ TAB.ER.PRT PO SCH (13:01)
[2021-04-27 13:15] VITALS: BP 115/81
[2021-04-27 19:34] VITALS: BP 131/91
[2021-04-27] MEDS: DAPTOMYCIN 250 MG in SODIUM CHLORIDE 0.9% 100 ML IVPB SCH (19:42)
[2021-04-27] MEDS: ALPRazolam 1MG TAB PO PRN (21:06)
[2021-04-28 00:58] VITALS: BP 114/79
[2021-04-28] MEDS: OXYcodone IR 5MG TABLET PO PRN ×5 (01:02→21:36)
[2021-04-28 07:30] VITALS: BP 114/74
[2021-04-28] MEDS: POTASSIUM CHLORIDE 20 MEQ TAB.ER.PRT PO SCH (07:51)
[2021-04-28] MEDS: FAMOTIDINE 20 MG TABLET PO SCH ×2 (07:51→20:15)
[2021-04-28] MEDS: METHADONE 10 MG TABLET PO SCH ×2 (07:51→20:15)
[2021-04-28 13:15] VITALS: BP 122/66
[2021-04-28] MEDS ORDERED: CEFTRIAXONE 1,000 MG IM ONE (13:30)
[2021-04-28] MEDS ORDERED: AZITHROMYCIN 500 MG TABLET PO ONE (13:30)
[2021-04-28 14:11] LABS: % IRON SATURATION 33 % (20-55); IRON LEVEL 58 mcg/dL (50-170); TOTAL IRON BINDING CAPACITY 174 mcg/dL (250-450)
[2021-04-28] MEDS: ALPRazolam 1MG TAB PO PRN (17:51)
[2021-04-28 19:27] VITALS: BP 106/72
[2021-04-28] MEDS: TEMAZEPAM 15 MG CAPSULE PO PRN (21:36)
[2021-04-28] MEDS: MELATONIN 5 MG TABLET PO PRN (21:36)
[2021-04-28] MEDS: DAPTOMYCIN 250 MG in SODIUM CHLORIDE 0.9% 100 ML IVPB SCH (22:20)
[2021-04-29] MEDS: OXYcodone IR 5MG TABLET PO PRN ×4 (01:38→14:29)
[2021-04-29 02:07] VITALS: BP 108/65
[2021-04-29 06:07] LABS: MICROSCOPIC NOT IND
[2021-04-29] MEDS: FAMOTIDINE 20 MG TABLET PO SCH ×2 (08:30→22:33)
[2021-04-29] MEDS: METHADONE 10 MG TABLET PO SCH ×2 (08:30→22:33)
[2021-04-29] MEDS: ALPRazolam 1MG TAB PO PRN (08:36)
[2021-04-29 08:46] VITALS: BP 101/63
[2021-04-29] MEDS: HYDROmorphone 1 MG/ML, 1ML INJ IV PRN (11:08)
[2021-04-29 13:22] VITALS: BP 99/67
[2021-04-29 20:18] VITALS: BP 95/63
[2021-04-29] MEDS: MELATONIN 5 MG TABLET PO PRN (22:33)
[2021-04-29] MEDS: TEMAZEPAM 15 MG CAPSULE PO PRN (22:33)
[2021-04-29] MEDS: DAPTOMYCIN 250 MG in SODIUM CHLORIDE 0.9% 100 ML IVPB SCH (22:33)
[2021-04-30 01:53] VITALS: BP 111/75
[2021-04-30] MEDS: OXYcodone IR 5MG TABLET PO PRN ×2 (02:07→08:17)
[2021-04-30] MEDS: ACETAMINOPHEN 325 MG TABLET PO PRN (02:08)
[2021-04-30] MEDS: FAMOTIDINE 20 MG TABLET PO SCH (08:17)
[2021-04-30] MEDS: METHADONE 10 MG TABLET PO SCH (08:17)
[2021-04-30 08:31] VITALS: BP 94/62
[2021-04-30] MEDS ORDERED: METHADONE 10 MG TABLET PO ONE (10:30)
[2021-04-30 13:53] VITALS: BP 101/68
[2021-04-30] MEDS ORDERED: METHADONE 10 MG TABLET PO SCH (21:00)
== END 2021-04-30 17:30 | disposition left against medical advice (07) | DRG 580 ==
LOC: ED 04:18 → EDIP 04:22 → 4NW 06:18 → 4NE 15:30
PROVIDERS: ADMIT Internal Medicine; ATTEND Hospitalist
PROC: 0KB60ZZ Excision of Left Shoulder Muscle, Open Approach (ICD-10-PCS; principal; 2021-04-25 07:30)
DX: L02.414 Cutaneous abscess of left upper limb (principal); F11.20 Opioid dependence, uncomplicated; M60.009 Infective myositis, unspecified site; F14.90 Cocaine use, unspecified, uncomplicated; F15.90 Other stimulant use, unspecified, uncomplicated; F17.210 Nicotine dependence, cigarettes, uncomplicated; K21.9 Gastro-esophageal reflux disease without esophagitis; F41.9 Anxiety disorder, unspecified; Z20.822 Contact with and (suspected) exposure to COVID-19; L03.114 Cellulitis of left upper limb; Z86.14 Personal history of Methicillin resistant Staphylococcus aureus infection; Z87.11 Personal history of peptic ulcer disease; Z80.3 Family history of malignant neoplasm of breast
CPT/HCPCS: 36415; 84145; 87806; 96374; 99291; J3490; 80048; 80053; 81003; 82550; 83540; 83550; 83605; 83735; 84100; 84703; 85025; 85651; 86140; 86480; 86705; 86706; 86803; 87040; 87070; 87075; 87077; 87186; 87205; 87340; 87491; 87521; 87591; 87635; G0378; J0295; J0690; J0878; J1170; J2250; J2405; J2543; J2704; J3010; J3370; G0475; J0330; J2060; J7030; J7050